=== PATIENT | female | born 1985 | race Caucasian/White ===

== ENCOUNTER 2019-03-29 14:45 | Outpatient (REF) | payer MEDICAID, SELFPAY ==
[2019-03-29 22:02] LABS: Anion Gap 12.7 mmol/L (3-11); BUN 10 mg/dL (7-18); CO2 23.3 mmol/L (21.0-32.0); CREATININE 0.65 mg/dL (0.55-1.02); Calcium 8.6 mg/dL (8.5-10.1); Chloride 104 mmol/L (98-107); Glucose 162 mg/dL (70-100); Potassium 4.1 mmol/L (3.5-5.1); Sodium 140 mmol/L (136-145)
== END 2019-03-29 15:05 ==
LOC: NCHCN 14:45
PROVIDERS: PCP Internal Medicine; Visit Provider Internal Medicine
DX: E11.9 Type 2 diabetes mellitus without complications (principal)
CPT/HCPCS: 80048

== ENCOUNTER 2020-01-12 08:41 | Outpatient (CLI) | payer MEDICAID, SELFPAY ==
[2020-01-14 07:31] LABS: COVID-19 RT-PCR Result NEGATIVE (Negative)
== END 2020-01-12 09:01 ==
PROVIDERS: PCP Internal Medicine; Visit Provider Family Medicine
DX: Z11.59 Encounter for screening for other viral diseases (principal)
CPT/HCPCS: U0003

== ENCOUNTER 2021-11-16 10:04 | Outpatient (REF) | payer BC, MEDICAID, SELFPAY ==
[2021-11-16 21:27] LABS: Hemoglobin A1C 7.4 % (<5.7)
[2021-11-16 21:37] LABS: ALT 43 U/L (14-59); AST 31 U/L (15-37); Alkaline Phosphatase 68 U/L (46-116); Anion Gap 6.6 mmol/L (3-11); BUN 12 mg/dL (7-18); Bilirubin, Total 0.3 mg/dL (0.2-1.0); CO2 29.4 mmol/L (21.0-32.0); CREATININE 0.8 mg/dL (0.55-1.02); Calcium 9.2 mg/dL (8.5-10.1); Calculated LDL 54 mg/dL (<100); Chloride 105 mmol/L (98-107); Cholesterol 95 mg/dL (<200); Glucose 142 mg/dL (74-106); HDL Cholesterol 23 mg/dL (40-60); Potassium 4.9 mmol/L (3.5-5.1); Sodium 141 mmol/L (136-145); Total Protein 7.1 g/dL (6.4-8.2); Triglyceride 90 mg/dL (<150)
== END 2021-11-16 10:05 | disposition home or self-care (01) ==
LOC: NCHCN 10:04
PROVIDERS: PCP Internal Medicine; Visit Provider Family Medicine
DX: E11.9 Type 2 diabetes mellitus without complications (principal); N91.2 Amenorrhea, unspecified; E66.8 Other obesity; Z87.442 Personal history of urinary calculi
CPT/HCPCS: 80053; 80061; 83036

== ENCOUNTER 2021-11-23 17:21 | Outpatient (REF) | payer BC, MEDICAID, SELFPAY ==
--- NOTE | 2021-11-23 16:40 | PAPFT_PTH ---
PATIENT: Roseline Fried LOC: [facility] U#:[id number] AGE/SX: 36/F ROOM: RE11/23/[address]: Monalisa Osborne : 1985 BED: DIS: 11/23/2021 SPEC #: [id number] RECD: 11/26/21 13:07 STATUS: ARMAAN REJagdish #: [id number] ZAC: 11/23/21 16:[address]: Monalisa Osborne DEPT: [facility] Cytology RECD BY: Sofía Leung ENTERED: 11/26/21 13:07 SP TYPE: PAPFT OTHR DR: Aurelio Dennis Tissues: 1 - CX/ENDOCX FOR PAP SMEARS Procedures: PAP THIN PREP/[facility] Screening Comments: [id number] (UNSATISFACTORY FOR EVALUATION)
== END 2021-11-23 17:22 | disposition home or self-care (01) ==
LOC: LBN 17:21
PROVIDERS: PCP Internal Medicine; Visit Provider Family Medicine
DX: Z12.4 Encounter for screening for malignant neoplasm of cervix (principal); R87.615 Unsatisfactory cytologic smear of cervix
CPT/HCPCS: 88142

== ENCOUNTER 2023-01-06 12:01 | Outpatient (REF) | payer MEDICAID, SELFPAY ==
--- NOTE | 2023-01-06 10:30 | PAPFT_PTH ---
PATIENT: Roseline Fried LOC: [facility]#:[id number] AGE/SX: 37/F ROOM: RE01/06/[address]: Monalisa Osborne : 1985 BED: DIS: 01/06/2023 SPEC #: [id number] RECD: 01/06/23 17:42 STATUS: ARMAAN REJagdish #: [id number] ZAC: 01/06/23 10:[address]: Monalisa Osborne DEPT: [facility] Cytology RECD BY: Sofía Leung ENTERED: 01/06/23 17:42 SP TYPE: PAPFT OTHR DR: Aurelio Dennis Tissues: 1 - CX/ENDOCX FOR PAP SMEARS Procedures: PAP THIN PREP/[facility] Screening HPV DNA PROBE Comments: [id number]
== END 2023-01-06 12:02 | disposition home or self-care (01) ==
LOC: NCHCN 12:01
PROVIDERS: PCP Internal Medicine; Visit Provider Family Medicine
DX: Z12.4 Encounter for screening for malignant neoplasm of cervix (principal); Z11.51 Encounter for screening for human papillomavirus (HPV)
CPT/HCPCS: 88142; 87624

== ENCOUNTER 2025-01-04 12:24 | Outpatient (REF) | payer OTHER, SELFPAY ==
[2025-01-04 16:44] LABS: Bilirubin Negative (Negative); Blood Negative (Negative); Clarity Clear (Clear); Glucose Negative (Negative); Ketones Negative (Negative); Leukocyte Esterase Negative (Negative); Nitrite Negative (Negative); Specific Gravity 1.025 (1.005-1.025); Urobilinogen 0.2 mg/dL (Up to 0.2); pH 5.5 (5-8)
[2025-01-04 16:53] LABS: COMMENT (LAB VIEW ONLY) 119.45 mg/dL; Microalb ug/mg Crea 15.3 ug/mg Cr
[2025-01-04 17:20] LABS: ALT 82 U/L (14-59); AST 70 U/L (15-37); Albumin 3.7 g/dL (3.4-5.0); Alkaline Phosphatase 88 U/L (46-116); Anion Gap 6.1 mmol/L (3-11); BUN 12 mg/dL (7-18); Bilirubin, Total 0.5 mg/dL (0.2-1.0); CO2 29.9 mmol/L (21.0-32.0); CREATININE 0.6 mg/dL (0.55-1.02); Calcium 9.5 mg/dL (8.5-10.1); Calculated LDL 91 mg/dL (<100); Chloride 101 mmol/L (98-107); Cholesterol 140 mg/dL (<200); Estimated GFR 117.02 (mL/min/1.73m2); Glucose 147 mg/dL (74-106); HDL Cholesterol 33 mg/dL (>or=50); Magnesium 1.7 mg/dL (1.8-2.4); Potassium 4.3 mmol/L (3.5-5.1); Sodium 137 mmol/L (136-145); Total Protein 8.1 g/dL (6.4-8.2); Triglyceride 82 mg/dL (<150); Vitamin B12 784 pg/mL (193-986)
[2025-01-05 19:24] LABS: HIV-1/2 Ag & Ab Screen Negative (Negative)
[2025-01-05 19:33] LABS: Hepatitis C Ab w Rflx HCV PCR Negative (Negative)
[2025-01-06 10:43] LABS: Syphilis Serology (RPR) Negative (Negative)
[2025-01-06 12:31] LABS: Chlamydia Result Negative (Negative); GC Result Negative (Negative)
== END 2025-01-04 12:25 | disposition home or self-care (01) ==
LOC: NCHCN 12:24
PROVIDERS: PCP Internal Medicine; Visit Provider Nurse Practitioner Family
DX: Z00.00 Encounter for general adult medical examination without abnormal findings (principal); E11.9 Type 2 diabetes mellitus without complications; Z11.59 Encounter for screening for other viral diseases
CPT/HCPCS: 80053; 80061; 86803; 87389; 87491; 87591; 81003; 82043; 82570; 82607; 83735; 86592